=== PATIENT | male | born 1955 | race Two or more races ===

== ENCOUNTER 2021-04-16 17:51 | Emergency (ER) | payer SELFPAY ==
[~2021-04-16] VITALS: Ht 162.6 cm; Wt 69.0 kg
[2021-04-16 18:32] VITALS: BP 159/73
--- NOTE | 2021-04-16 19:16 | PHYS DOC ---
Past Medical History Past Surgical History: No Surgical History General Adult EDM: Chief Complaint: BACK PAIN OR INJURY HPI: HPI: 65-year-old male past medical history of hypertension, presents to the ED with his biological daughter, (patient consents to his/her/their knowledge and involvement in pts' medical care), complaints of intermittent, sharp, right thoracic flank pain/back pain that radiates around his abdomen to the front, started on April 07 after patient was picking up sheet rock to repair a ceiling. Patient states the pain started when he lifted a heavy sheet rock above his torso into the air. Pain is worsened with twisting movements to the right and lying flat at night. Reports pain is worse at night and he is sweating but believes this is related to the pain. States pain has not improved. States he has been getting up to go to the bathroom a lot more at night. No h/o prior back injruy/trauma. Denies any history of trauma, history of IV drug use, history of cancer, history of sciatica, history of malignancy, history of immunocompromise state, neurologic complaints including saddle anesthesia, weakness or paresthesias, urinary retention, bowel or bladder incontinence, unexplained weight loss, anticoagulants or coagulopathy, prolonged steroid use, presence of contusions or abrasions. Review of Systems: Review of Systems: Constitutional: Denies fever or chills. [] Eyes: Denies change in visual acuity. [] HENT: Denies nasal congestion or sore throat. [] Respiratory: Denies cough or shortness of breath. [] Cardiovascular: Denies chest pain or edema. [] GI: Denies abdominal pain, nausea, vomiting, bloody stools or diarrhea. [] : Denies urinary or bowel incontinence or hematuria Musculoskeletal: Denies midline back pain or joint pain. [] Integument: Denies rash or diaphoresis Neurologic: Denies headache, focal weakness or sensory changes. [] Endocrine: Denies increased thirst or polydipsia. [] Lymphatic: Denies swollen glands. [] Psychiatric: Denies depression or anxiety. [] Heart Score: C/O Chest Pain: No Risk Factors: Risk Factors: DM, Current or recent (<one month) smoker, HTN, HLP, family history of CAD, obesity. Risk Scores: Score 0 - 3: 2.5% MACE over next 6 weeks - Discharge Home Score 4 - 6: 20.3% MACE over next 6 weeks - Admit for Clinical Observation Score 7 - 10: 72.7% MACE over next 6 weeks - Early Invasive Strategies Physical Exam: PE: Constitutional: Well developed, well nourished, no acute distress, non-toxic appearance. HENT: Normocephalic, atraumatic, Eyes: EOMI, conjunctiva normal, no discharge. Neck: Normal range of motion, supple, Cardiovascular: S1/2 present, regular rhythm Lungs & Thorax: Speaking in full sentences, bilateral equal chest rise, no tachypnea or increased work of breathing Abdomen: soft, no tenderness, Skin: Warm, dry, no erythema, no rash. [] Back: No midline spinal step-offs or tenderness, right paraspinal thoracic back pain over T7-10 Extremities: No tenderness, no cyanosis, no lower extremity edema, pain is exacerbated with straight leg test Neurologic: Alert and oriented X 3, normal motor function, normal sensory function, no focal deficits noted. [] Psychologic: Affect normal, judgement normal, mood normal. [] Current Patient Data: Vital Signs: Vital Signs Date Time Temp Pulse Resp B/P (MAP) Pulse Ox O2 Delivery O2 Flow Rate FiO2 04/16/21 18:32 99.2 60 20 159/73 (101) 96 Room Air 99.2 EKG: EKG: [] Radiology/Procedures: Radiology/Procedures: []IMAGING REPORT Signed PATIENT: EDENILSON PICKERING ACCOUNT: [id number] : 1955 LOCATION: ER AGE: 65 SEX: M EXAM STATUS: REG ER ORD. PHYSICIAN: ARRON SAMUEL DO REASON: right thoracic/flank pain PROCEDURE: CT ABD PELV W/ IV CONTRST ONLY EXAM: CT Abdomen and Pelvis with IV contrast CLINICAL HISTORY: Reason: right thoracic/flank pain COMPARISON: none TECHNIQUE: Helical CT of the abdomen and pelvis was performed following the administration of intravenous contrast. Axial, coronal and sagittal reformatted images were generated. PQRS compliance statement - One or more of the following individualized dose reduction techniques were utilized for this study: 1. Automated exposure control 2. Adjustment of the mA and/or kV according to patient size 3. Use of iterative reconstruction technique FINDINGS: Lower Chest: Linear opacities medial right lung base likely atelectasis. Abdomen and Pelvis: No focal liver lesion. Gallbladder is normal. No biliary dilatation. Pancreas, spleen and adrenal glands are unremarkable. Symmetric nephrograms. No focal renal lesion. No hydronephrosis. Bladder is unremarkable. No hydroureter. Appendix is normal. Moderate colonic stool content is seen. No small or large bowel dilatation. No bowel obstruction. No abdominal or pelvic ascites. Abdominal pelvic lymphadenopathy. Aorta is normal in caliber. Bones: Please see dedicated CT thoracic spine report below for thoracic spine details. Multiple rounded lucencies are seen throughout the osseous structures including the sacrum, pelvic bones and vertebral bodies. IMPRESSION: 1. Multiple rounded lucencies are seen throughout the osseous structures suspicious for metastatic disease or myeloma. This can be further assessed by MRI if clinically indicated. 2. No acute abdominal or pelvic process. Exam: CT thoracic spine CLINICAL HISTORY:Reason: right thoracic/flank pain / Spl. Instructions: / History: COMPARISON: None available. TECHNIQUE: Helical CT of the thoracic spine was performed and axial, coronal and sagittal reformatted images were generated. PQRS compliance statement - One or more of the following individualized dose reduction techniques were utilized for this study: 1. Automated exposure control 2. Adjustment of the mA and/or kV according to patient size 3. Use of iterative reconstruction technique FINDINGS: Vertebral body heights are preserved. Disc heights are preserved. Anterior endplate osteophytes are seen at multiple levels. Multiple rounded lucencies are seen throughout the osseous structures including T12, T11 T1. No spondylolisthesis. Prominent prevascular lymph node measures 8 mm in short axis. IMPRESSION: No acute fracture or subluxation. Multiple rounded lucencies are seen throughout the osseous structures including the thoracic spine, possibly metastatic disease or myeloma. The largest lesion is seen at T12. This can be further assessed by MRI if clinically indicated. Electronically signed by: Romy Méndez MD (04/16/2021 9:21 PM) [facility] DICTATED and SIGNED BY: ROMY MÉNDEZ MD DATE: 04/16/21 [id number] 0 Course & Med Decision Making: Course & Med Decision Making Pertinent Labs and Imaging studies reviewed. (See chart for details) Concern for thoracic back pain with associated night sweats. [employer] services were offered in the emergency department but patient elects for his daughter to translate for him. CT imaging concerning for lower thoracic metastatic disease versus multiple myeloma. CT images printed and given to patient to take to primary care physician. Patient has no insurance and follows at [facility]. Instructions were provided in Sudanese regarding CT imaging findings. Patient hemodynamically stable, with steady gait, no neurologic deficits (no incontinence or saddle anesthesia). Hematuria present on UA, CT with normal caliber aorta. Pt calm and in no extreme pain. Hematuria has a broad differential- AAA or aortic dissection considered but are low on suspicion given CT imaging findings and patient presentation. Daughter and patient both understand he needs urgent oncology follow-up -patient had no questions regarding this. Will discharge home with strict ED return precautions were given for severe worsening abdominal or back pain, neurologic deficits or syncope. Encouraged urgent outpatient follow-up with PMD and hematology oncology within 1 to 2 days. Life-threatening processes were considered but are low suspicion at this time, given history, physical exam and ED workup. Pt was educated on all prescription medications and adverse effects. All patient's questions were answered and pt was stable at time of discharge. Life/limb-threatening differential includes but is not limited to, aortic dissection/aneurysm, cauda equina syndrome, transverse myelitis, spinal cord/epidural compression syndromes, discitis, spinal stenosis, epidural abscess or hematoma, osteomyelitis, disc herniation, surgical abdomen, stable or unstable fracture, renal/ureteral colic, sepsis, meningitis, musculoskeletal injury, traumatic injury, intraabdominal/retroperitoneal or pelvic bleeding. I have spoken with the patient and/or caregivers. I explained the patient's condition, diagnoses and treatment plan based on the information available to me at this time. I have answered the patient and/or caregiver's questions and addressed any concerns. The patient and/or caregivers have a good understanding of patient's diagnosis, condition and treatment plan as can be expected at this point. Vital signs have been stable. Patient's condition is stable and appropriate for discharge from the emergency department. Patient will pursue further outpatient evaluation with primary care physician or other designated or consulting physician as outlined in the discharge instructions. The patient and/or caregivers are agreeable to this plan of care and follow-up instructions have been explained in detail. The patient and/or caregivers have received these instructions in written form and have expressed an understanding of the discharge instructions. The patient and/or caregivers are aware that any significant change of condition or worsening of symptoms should prompt immediate return to this or the closest emergency department or call to 911. Dragon Disclaimer: Dragon Disclaimer: This electronic medical record was generated, in whole or in part, using a voice recognition dictation system. Departure Departure Impression: Primary Impression: Thoracic back pain Additional Impression: Night sweats Disposition: HOME / SELF CARE / HOMELESS Condition: STABLE Referrals: NO PCP (PCP) Connie un seguimiento con rodriguez mdico de atencin primaria en 24 a 48 horas O SEGUIMIENTO CON MEDICINA FAMILIAR: [address] [facility] [place], [address] [place] [address] Telfono: Patient Instructions: Back Pain, Adult, Bone Metastases, Multiple Myeloma Additional Instructions: SEGUIMIENTO CON: PARA EL TRATAMIENTO DEFINITIVO de las lesiones torcicas observadas en las imgenes de TC relacionadas con renetta posible enfermedad metastsica o [facility]oma [facility] gam[facility]iel [address] [facility] [address] [place] [address] Telfono: INSTRUCCIONES GENERALES DE VANNA DEL DEPARTAMENTO DE EMERGENCIAS Stacia por venir al Departamento de Emergencias (ED) del [facility] kam y confiando en nosotros con rodriguez cuidado. Confiamos que haya tenido renetta experiencia positiva en nuestra Emergencia Departamento. Si desea hablar con la gerencia del departamento, puede llamar al Director al . ELIZABETH INSTRUCCIONES DE SEGUIMIENTO SON LAS SIGUIENTES: 1. Tiene un mdico privado? Si no tiene un mdico privado, solicite un lista de recursos de mdicos o clnicas que pueden ayudarlo con la atencin de seguimiento. 2. El Physicain de Emergencias gann interpretado elizabeth radiografas. El especialista en federico X tambin revselos. Si hay un cambio en los resultados, se le notificar en 48 horas cuando en todo posible. 3. Se gann realizado renetta prueba de laboratorio o un cultivo, se revisarn elizabeth resultados y se le notificado si necesita un cambio de tratamiento. INSTRUCCIONES E INFORMACIN ADICIONALES: 1. Rodriguez atencin hoy gann sido supervisada por un mdico especialmente capacitado en emergencias. cuidado. Muchos problemas requieren ms de renetta evaluacin para un diagnstico completo y tratamiento. Le recomendamos que programe rodriguez jarad de seguimiento segn lo recomendado para garantizar un tratamiento completo de rodriguez enfermedad o lesin. Si no puede obtener un seguimiento cuidado y contina teniendo un problema, o si rodriguez condicin empeora, le recomendamos que Regrese al servicio de urgencias. 2. No podemos determinar con seguridad rodriguez condicin por telfono ni podemos josue consejos mdicos slidos por telfono. Por estas razones de seguridad, si llama al mdico consejo, le pediremos que acuda al servicio de urgencias para renetta evaluacin adicional. 3. Si tiene alguna pregunta con respecto a estas instrucciones de vanna, llame al servicio de urgencias al [phone]. INFORMACIN DE SEGURIDAD: En jean claude de la seguridad, el bienestar y la prevencin de lesiones; te animamos a que uses tu cinturn de seguridad, si fuma; bastante fumador, y alentamos a la alejandra a usar un erin protector para andar en bicicleta y otros eventos deportivos que presentan un mayor riesgo de lesiones en la niraj. SI ELIZABETH SNTOMAS EMPEORAN O SE DESARROLLAN NUEVOS SNTOMAS, O TIENE PREOCUPACIONES ACERCA DE RODRIGUEZ CONDICIN; O SI RODRIGUEZ CONDICION EMPLEA MIENTRAS ESPERA RODRIGUEZ JARAD DE SEGUIMIENTO; CUALQUIERA COMUNQUESE CON RODRIGUEZ MDICO DE CUIDADO PRIMARIO, EL MDICO CUYO NOMBRE Y NMERO LE DIERON, O REGRESE INMEDIATAMENTE AL ED. Scripts Hydrocodone Bit/Acetaminophen (HYDROCODONE-APAP 5-325 ) 1 Tab Tablet 1 TAB PO PRN Q6HRS PRN for PAIN for 3 Days, #12 TAB 0 Refills Prov: ARRON SAMUEL DO 04/17/21 Ibuprofen (IBUPROFEN) 600 Mg Tablet 600 MG PO PRN Q6HRS PRN for PAIN, #20 TAB take with food or milk Prov: ARRON SAMUEL DO 04/17/21 ARRON SAMUEL DO Apr 16, 2021 19:16
[2021-04-16] MEDS ORDERED: diazePAM 5 MG TABLET PO ONE (19:30)
[2021-04-16 20:33] LABS: BASO # 0.1 x10^3/uL (0.0-0.2); BASO % 1 % (0-3); EOS # 0.2 x10^3/uL (0.0-0.7); EOS % 4 % (0-3); HEMATOCRIT 33.9 % (39.0-53.0); HEMOGLOBIN 11.6 g/dL (13.0-17.5); LYMPH # 2.2 x10^3/uL (1.0-4.8); LYMPH % 41 % (24-48); MEAN CORPUSCULAR HEMOGLOBIN 31 pg (25-35); MEAN CORPUSCULAR HGB CONC 34 g/dL (31-37); MEAN CORPUSCULAR VOLUME 91 fL (79-100); MONO # 0.8 x10^3/uL (0.0-1.1); MONO % 15 % (0-9); NEUT % 38 % (31-73); PLATELET COUNT 165 x10^3/uL (140-400); RED BLOOD COUNT 3.73 x10^6/uL (4.30-5.70); RED CELL DISTRIBUTION WIDTH 14.7 % (11.5-14.5); WHITE BLOOD COUNT 5.3 x10^3/uL (4.0-11.0)
[2021-04-16 20:40] LABS: CALCIUM 8.6 mg/dL (8.5-10.1); CREATININE 1.2 mg/dL (0.7-1.3); GFR 61.1; POTASSIUM 3.6 mmol/L (3.5-5.1)
[2021-04-16] MEDS ORDERED: IOHEXOL 300 MG/ML 100ML VIAL. IV ONE (21:00)
--- NOTE | 2021-04-16 21:24 | RAD ---
EXAM: CT Abdomen and Pelvis with IV contrast CLINICAL HISTORY: Reason: right thoracic/flank pain COMPARISON: none TECHNIQUE: Helical CT of the abdomen and pelvis was performed following the administration of intrave nous contrast. Axial, coronal and sagittal reformatted images were generated. PQRS compliance statement - One or more of the following individualized dose reduction techniques wer e utilized for this study: 1. Automated exposure control 2. Adjustment of the mA and/or kV according to patient size 3. Use of iterative reconstruction technique FINDINGS: Lower Chest: Linear opacities medial right lung base likely atelectasis. Abdomen and Pelvis: No focal liver lesion. Gallbladder is normal. No biliary dilatation. Pancreas, spleen and adrenal gla nds are unremarkable. Symmetric nephrograms. No focal renal lesion. No hydronephrosis. Bladder is unr emarkable. No hydroureter. Appendix is normal. Moderate colonic stool content is seen. No small or large bowel dilatation. No shan wel obstruction. No abdominal or pelvic ascites. Abdominal pelvic lymphadenopathy. Aorta is normal in caliber. Bones: Please see dedicated CT thoracic spine report below for thoracic spine details. Multiple rounded luce ncies are seen throughout the osseous structures including the sacrum, pelvic bones and vertebral bod ies. IMPRESSION: 1. Multiple rounded lucencies are seen throughout the osseous structures suspicious for metastatic d isease or myeloma. This can be further assessed by MRI if clinically indicated. 2. No acute abdominal or pelvic process. Exam: CT thoracic spine CLINICAL HISTORY:Reason: right thoracic/flank pain / Spl. Instructions: / History: COMPARISON: None available. TECHNIQUE: Helical CT of the thoracic spine was performed and axial, coronal and sagittal reformatted images were generated. PQRS compliance statement - One or more of the following individualized dose reduction techniques wer e utilized for this study: 1. Automated exposure control 2. Adjustment of the mA and/or kV according to patient size 3. Use of iterative reconstruction technique FINDINGS: Vertebral body heights are preserved. Disc heights are preserved. Anterior endplate osteophytes are s een at multiple levels. Multiple rounded lucencies are seen throughout the osseous structures including T12, T11 T1. No spond ylolisthesis. Prominent prevascular lymph node measures 8 mm in short axis. IMPRESSION: No acute fracture or subluxation. Multiple rounded lucencies are seen throughout the osseous structures including the thoracic spine, p ossibly metastatic disease or myeloma. The largest lesion is seen at T12. This can be further assesse d by MRI if clinically indicated. Electronically signed by: Charli Campbell MD (04/16/2021 9:21 PM) [facility]
[2021-04-16 22:54] LABS: BILIRUBIN,URINE NEGATIVE (NEG); CLARITY,URINE CLEAR; COLOR,URINE YELLOW; NITRITE,URINE NEGATIVE (NEG); PH,URINE 5.5 (<5.0-8.0); PROTEIN,URINE NEGATIVE (NEG-TRACE); UROBILINOGEN,URINE 0.2 mg/dL (0.2 mg/dL)
[2021-04-16 23:00] LABS: WBC,URINE 0 /HPF (0-4)
[2021-04-16 23:01] LABS: BACTERIA,URINE 0 /HPF (0-FEW)
[2021-04-17] MEDS ORDERED: HYDR-2761 PO (01:07)
[2021-04-17] MEDS ORDERED: IBUP-1007 PO (01:07)
== END 2021-04-17 01:29 | disposition home or self-care (01) ==
LOC: ER 17:51
DX: M54.6 Pain in thoracic spine (principal); R61 Generalized hyperhidrosis; I10 Essential (primary) hypertension
CPT/HCPCS: 36415; 72128; 74177; 80048; 81001; 85025; 99285; Q9967